=== PATIENT | female | born 1930 | race Caucasian/White ===

== ENCOUNTER 2018-04-07 06:40 | Day surgery (SDC) | payer MEDICARE, BC ==
[2018-04-07] MEDS ORDERED: Propofol 200 MG/20 ML SDV ONE (07:06)
[2018-04-07] MEDS ORDERED: Midazolam 1 MG/ML 2 ML SDV ONE (07:06)
[2018-04-07] MEDS ORDERED: fentaNYL 100 MCG/2 ML SDV ONE (07:06)
[2018-04-07] MEDS ORDERED: Dextrose 5%-Lactated Ringers 1,000 ML IV SCH (07:15)
[2018-04-07 10:00] VITALS: BP 157/73
--- NOTE | 2018-04-15 10:34 | OR ---
DATE OF PROCEDURE: 04/07/2018 PREOPERATIVE DIAGNOSIS: History of change in bowel habits with narrowed stools. POSTOPERATIVE DIAGNOSIS: Normal colonoscopic examination. OPERATIVE PROCEDURE: Flexible colonoscopy. ANESTHESIA: IV sedation. INDICATION FOR PROCEDURE: This is an 87-year-old presenting with recent onset of narrowing of her stools. To rule out a neoplastic process, the patient is to undergo a flexible colonoscopy with biopsies and/or polypectomy as indicated. Potential risks including bleeding and perforation were discussed, and the patient wishes to proceed. DETAILS OF PROCEDURE: The patient was taken to the operating room and placed in a left lateral decubitus position. IV sedation was administered, after which, the initial digital rectal exam was performed and was unremarkable. Colonoscope was then passed into the rectum with retroflexion revealing uncomplicated hemorrhoidal columns. The scope was then eventually passed to the level of the cecum. The prep was generally quite good with there only being a small amount of liquid stool noted. Overall, the examination was entirely normal. There were no areas of narrowing and no areas of diverticular disease, colitis, polyps, or other signs of neoplasia. The scope was then withdrawn, the above findings reconfirmed, and the procedure then concluded. I questioned the patient and daughter postprocedure. It became evident that her recently was placed on Coumadin, and they have gotten most of the vegetables out of her diet, i.e., she has adopted a much lower fiber diet and this is probably contributing to the change in the stools. I explained that she can get some additional fiber by any means, well that be medication such as FiberCon or bland cereal or other vegetable-type of foods would be beneficial and likely solve the problem. She will be following up with Dr. Kaiser at [facility] in 3 to 4 weeks. Neri Kiser MD /[id number]
== END 2018-04-07 11:00 | disposition home or self-care (01) ==
LOC: JP.SDS 06:40
PROVIDERS: ATTEND Surgery
DX: R19.4 Change in bowel habit (principal); I10 Essential (primary) hypertension; E78.5 Hyperlipidemia, unspecified; E03.9 Hypothyroidism, unspecified; R19.5 Other fecal abnormalities
CPT/HCPCS: 45378; J2250; J2704; J3010; J7042